=== PATIENT | male | born 1960 | race Caucasian/White ===

== ENCOUNTER 2024-04-03 09:18 | Emergency (ER) | payer OTHER ==
[~2024-04-03] VITALS: Ht 172.7 cm; Wt 85.7 kg
[2024-04-03] MEDS ORDERED: BUPROPION XL300 MG PO (09:47)
[2024-04-03] MEDS ORDERED: GABAPENTIN300 MG PO (09:47)
[2024-04-03] MEDS ORDERED: ESCITALOPRAM OX20 MG (09:47)
[2024-04-03] MEDS ORDERED: SODIUM CHLORIDE 0.9% 1,000 ML IV PRN (10:15)
[2024-04-03] MEDS ORDERED: diphenhydrAMINE HCL 50 MG/ML VIAL IV ONE (10:15)
[2024-04-03] MEDS ORDERED: PROCHLORPERAZINE EDISYLATE 10 MG/2 ML VIAL IV ONE (10:15)
[2024-04-03 10:33] LABS: BASOPHILS 0.4 % (0-2); EOSINOPHILS 0.7 % (0-6); HEMATOCRIT 45.1 % (35.0-50.0); HEMOGLOBIN 15.4 g/dL (12.0-18.0); LYMPHOCYTES 9.7 % (24-44); MCH 31.7 (27-36); MCHC 34.1 g/dl (30-36); MCV 92.9 fl (81-99); MONOCYTES 7.3 % (0-12); NEUTROPHILS 81.9 % (39-80); PLATELET COUNT 189 K/uL (140-440); RBC 4.85 M/ul (4.3-5.7); RDW 12.9 (10.5-15.0)
[2024-04-03 10:44] LABS: ANION GAP 10.2 (7-21); BUN/CREATININE RATIO 6.29 (6.0-28.6); CALCIUM 8.9 mg/dL (8.5-10.1); CREATININE, SERUM 1.27 mg/dL (0.70-1.30); POTASSIUM 4.2 mmol/L (3.5-5.1)
[2024-04-03] MEDS ORDERED: predniSONE 20 MG TAB PO ONE (11:30)
[2024-04-03] MEDS ORDERED: KETOROLAC TROMETHAMINE 30 MG/ML VIAL IV ONE (11:30)
[2024-04-03] MEDS ORDERED: PREDNISONE20 MG PO (11:47)
[2024-04-03 11:57] VITALS: BP 121/83
== END 2024-04-03 11:58 | disposition home or self-care (01) ==
LOC: ED 09:18
PROVIDERS: Emergency Medicine
DX: R51.9 Headache, unspecified (principal); R20.2 Paresthesia of skin; Z79.899 Other long term (current) drug therapy
CPT/HCPCS: 36415; 70450; 80048; 85025; 96374; 96375; 99284-25; J0780; J1200; J1885; J7030; J7512